=== PATIENT | male | born 1960 | race Caucasian/White ===

== ENCOUNTER 2017-06-29 15:26 | Emergency (ER) | payer OTHER ==
[~2017-06-29] VITALS: Ht 177.8 cm; Wt 125.6 kg
[2017-06-29 15:50] LABS: HEMATOCRIT 48.2 % (38.0-50.0); MCH 29.5 PG (29.0-34.0); MCHC 33.2 G/DL (30.0-36.0); MCV 88.9 FL (86-99); PLATELET COUNT 175 K/uL (156-360); RBC DIS.WIDTH-CV 14.1 % (11.8-14.6); RBC DIS.WIDTH-SD 45.7 % (39-53); RED BLOOD COUNT 5.42 M/uL (4.00-5.50); WHITE BLOOD COUNT 9.4 K/uL (4.1-10.2)
[2017-06-29 16:01] LABS: CHLORIDE 106 mEq/L (99-109); POTASSIUM 4.3 mEq/L (3.7-5.4); SODIUM 140 mEq/L (136-147)
[2017-06-29 16:03] LABS: GLUCOSE 99 mg/dL (70-99)
[2017-06-29 16:07] LABS: CREATININE 0.9 mg/dL (0.6-1.3); GFR ESTIMATE (CALCULATED) > 59 mL/min/ (58.99-99999)
[2017-06-29 16:08] LABS: UREA NITROGEN (BUN) 14 mg/dL (9-23)
[2017-06-29] MEDS ORDERED: VENTOLIN HFA18 GM IH (18:17)
[2017-06-29] MEDS ORDERED: CODITUSSIN AC473 ML PO ×2 (18:17→18:35)
[2017-06-29] MEDS ORDERED: TESSALON PERLE100 MG PO (18:17)
[2017-06-29 18:38] VITALS: BP 123/76
== END 2017-06-29 18:42 | disposition home or self-care (01) ==
LOC: EME 15:26
DX: J06.9 Acute upper respiratory infection, unspecified (principal); F17.210 Nicotine dependence, cigarettes, uncomplicated
CPT/HCPCS: 71046; 80048; 85027; 99281; 99283